=== PATIENT | female | born 2000 | race American Indian/Alaskan Native ===

== ENCOUNTER 2018-03-24 19:06 | Emergency (ER) | payer SELFPAY | END 2018-03-24 22:24 | disposition left against medical advice (07) | LOC: ED 19:06 | DX: F19.90 Other psychoactive substance use, unspecified, uncomplicated (principal); Z53.21 Procedure and treatment not carried out due to patient leaving prior to being seen by health care provider ==

== ENCOUNTER 2018-06-23 21:59 | Emergency (ER) | payer SELFPAY ==
[2018-06-24 01:06] LABS: Amorphous Crystals,Urine 1+; Bilirubin,Urine NEG (Negative); Blood,Urine NEG (Negative); Color,Urine Yellow (Yellow); Protein,Urine <15 mg/dL mg/dL (Negative)
[2018-06-24 01:14] LABS: Amphetamine Screen,Urine PRESUMPTIVE NEGATIVE; Benzodiazepines Screen,Urine PRESUMPTIVE NEGATIVE; Methadone Screen,Urine PRESUMPTIVE NEGATIVE; Opiate Screen,Urine PRESUMPTIVE NEGATIVE
[2018-06-24 01:19] LABS: Basophils # (Auto) 0.1 K/mm3 (0.0-0.1); Basophils % (Auto) 0.8 % (0.0-1.8); Eosinophils # (Auto) 0.4 K/mm3 (0.0-0.4); Eosinophils % (Auto) 4.8 % (0.0-4.3); Hematocrit 41.6 % (30.3-42.9); Hemoglobin 13.6 gm/dl (10.1-14.3); Lymphocytes # (Auto) 3.4 K/mm3 (1.2-5.4); Lymphocytes % (Auto) 44.7 % (13.4-35.0); Mean Corpuscular HGB Conc 33 % (30-34); Mean Corpuscular Hemoglobin 30 pg (28-32); Mean Corpuscular Volume 91 fl (79-97); Monocytes # (Auto) 0.3 K/mm3 (0.0-0.8); Monocytes % (Auto) 3.5 % (0.0-7.3); Platelet Count 366 K/mm3 (140-440); Red Cell Distribution Width 14.3 % (13.2-15.2)
[2018-06-24 01:35] LABS: BUN/Creatinine Ratio 6; Blood Urea Nitrogen 6 mg/dL (7-17); Hemolysis Index 11
[2018-06-24 01:56] LABS: Cannabinoid Screen,Urine PRESUMPTIVE POSITIVE; Cocaine Screen,Urine PRESUMPTIVE POSITIVE
--- NOTE | 2018-06-24 02:04 | Emergency Department Report ---
ED Psych HPI - General Chief Complaint: Psych Stated Complaint: LORENA EVAL Time Seen by Provider: 06/24/18 01:54 Source: patient, EMS Mode of arrival: Ambulatory - History of Present Illness Initial Comments: Patient is 18 years old female with history of schizophrenia. Patient brought to the ER via EMS for evaluation of bizarre behaviors. Patient stated that she is seeing goonies at her home and they're bothering her. Patient is calm and sleepy during the evaluation in no acute distress. She denied any suicidal or homicidal ideation. Patient mother who drove behind ambulances stating that she is out of her psychiatric medication and she is not following up with her psychiatric as supposed to be. MD Complaint: altered mental status - Related Data Home Medications Medication Instructions Recorded Confirmed Last Taken Fluticasone/Salmeterol [Advair 1 puff IH BID 06/24/18 06/24/18 Unknown Diskus 250-50 mcg] Quetiapine Fumarate [Seroquel] 300 mg PO QHS 06/24/18 06/24/18 Unknown acetaZOLAMIDE [Diamox TAB] 250 mg PO TID 06/24/18 06/24/18 Unknown busPIRone [Buspar] 10 mg PO TID 06/24/18 06/24/18 Unknown hydrOXYzine PAMOATE [Vistaril] 25 mg PO TID 06/24/18 06/24/18 Unknown risperiDONE [RisperDAL] 1 mg PO BID 06/24/18 06/24/18 Unknown Allergies Allergy/AdvReac Type Severity Reaction Status Date / Time raspberry Allergy Swelling Verified 06/24/18 00:42 tomato Allergy Swelling Verified 06/24/18 00:43 topiramate [From Topamax] Allergy Swelling Verified 06/24/18 00:43 ED Review of Systems ROS: Stated complaint: LORENA EVAL Other details as noted in HPI Comment: All other systems reviewed and negative Constitutional: denies: chills, fever Respiratory: denies: cough, shortness of breath, SOB with exertion Cardiovascular: denies: chest pain, palpitations, dyspnea on exertion Gastrointestinal: denies: abdominal pain, nausea, vomiting, diarrhea, constipation, hematemesis, melena, hematochezia Musculoskeletal: denies: back pain Neurological: denies: headache, weakness, numbness, paresthesias, abnormal gait ED Past Medical Hx - Past Medical History Previous Medical History?: Yes Hx Hypertension: Yes Hx Psychiatric Treatment: Yes (anxiety,schizophrenia,depression) Hx Asthma: Yes - Social History Smoking Status: Heavy Tobacco Smoker Substance Use Type: Alcohol, Cocaine, Marijuana - Medications Home Medications: Home Medications Medication Instructions Recorded Confirmed Last Taken Type Fluticasone/Salmeterol [Advair 1 puff IH BID 06/24/18 06/24/18 Unknown History Diskus 250-50 mcg] Quetiapine Fumarate [Seroquel] 300 mg PO QHS 06/24/18 06/24/18 Unknown History acetaZOLAMIDE [Diamox TAB] 250 mg PO TID 06/24/18 06/24/18 Unknown History busPIRone [Buspar] 10 mg PO TID 06/24/18 06/24/18 Unknown History hydrOXYzine PAMOATE [Vistaril] 25 mg PO TID 06/24/18 06/24/18 Unknown History risperiDONE [RisperDAL] 1 mg PO BID 06/24/18 06/24/18 Unknown History ED Physical Exam - General Limitations: No Limitations General appearance: alert, in no apparent distress - Head Head exam: Present: atraumatic, normocephalic, normal inspection - ENT ENT exam: Present: normal exam, normal orophraynx, mucous membranes moist - Neck Neck exam: Present: normal inspection, full ROM. Absent: tenderness, meningismus - Respiratory Respiratory exam: Present: normal lung sounds bilaterally. Absent: respiratory distress, wheezes, rales, rhonchi, chest wall tenderness - Cardiovascular Cardiovascular Exam: Present: regular rate, normal rhythm, normal heart sounds - GI/Abdominal GI/Abdominal exam: Present: soft, normal bowel sounds. Absent: distended, tenderness, guarding, rebound, rigid, organomegaly, mass, bruit, pulsatile mass - Extremities Exam Extremities exam: Present: normal inspection, full ROM, normal capillary refill. Absent: pedal edema, calf tenderness - Back Exam Back exam: Present: normal inspection, full ROM. Absent: tenderness, CVA tenderness (R), CVA tenderness (L), muscle spasm, paraspinal tenderness, vertebral tenderness - Neurological Exam Neurological exam: Present: alert, oriented X3, CN II-XII intact, normal gait, reflexes normal - Skin Skin exam: Present: warm, intact, normal color ED Course Vital Signs 06/24/18 06/24/18 06/24/18 00:22 10:00 13:45 Temperature 97.5 F L 97.6 F Pulse Rate 84 75 Respiratory 18 18 18 Rate Blood Pressure 134/63 Blood Pressure 134/63 125/77 [Left] O2 Sat by Pulse 100 100 Oximetry 06/24/18 19:45 Temperature 98.4 F Pulse Rate 86 Respiratory 18 Rate Blood Pressure Blood Pressure 117/72 [Left] O2 Sat by Pulse 100 Oximetry ED Medical Decision Making - Lab Data Result diagrams: 06/24/18 01:00 06/24/18 01:00 Critical care attestation.: If time is entered above; I have spent that time in minutes in the direct care of this critically ill patient, excluding procedure time. ED Disposition Clinical Impression: Acute psychosis Disposition: [id number]/TX-[facility] PSY HOSP/PSY UNIT Is pt being admited?: No Condition: Stable Referrals: PRIMARY CARE, [Primary Care Provider] - 3-5 Days
[2018-06-24] MEDS ORDERED: GEODON PO ONE (05:38)
[2018-06-24] MEDS ORDERED: GEODON ONE (05:40)
--- NOTE | 2018-06-24 12:45 | Consultation ---
History of Present Illness - Reason for Consult Consult date: 06/24/18 Reason for consult: Mental Health Evaluation Requesting physician: MARK CANTU - Chief Complaint Chief complaint: "They are after me" - History of Present Psychiatric Illness 18 years old AA female presenting to the Er for acute psychosis. Today the patient is calm, but disorganized during the assessment. She had to be redirected several times to keep her on topic. She is adamant that "goonies" are after her. No gestures of SI/Hi's. This patient is a poor historian at this time. Medications and Allergies Allergies Allergy/AdvReac Type Severity Reaction Status Date / Time raspberry Allergy Swelling Verified 06/24/18 00:42 tomato Allergy Swelling Verified 06/24/18 00:43 topiramate [From Topamax] Allergy Swelling Verified 06/24/18 00:43 Home Medications Medication Instructions Recorded Confirmed Last Taken Type Fluticasone/Salmeterol [Advair 1 puff IH BID 06/24/18 06/24/18 Unknown History Diskus 250-50 mcg] Quetiapine Fumarate [Seroquel] 300 mg PO QHS 06/24/18 06/24/18 Unknown History acetaZOLAMIDE [Diamox TAB] 250 mg PO TID 06/24/18 06/24/18 Unknown History busPIRone [Buspar] 10 mg PO TID 06/24/18 06/24/18 Unknown History hydrOXYzine PAMOATE [Vistaril] 25 mg PO TID 06/24/18 06/24/18 Unknown History risperiDONE [RisperDAL] 1 mg PO BID 06/24/18 06/24/18 Unknown History Past psychiatric history - Past Medical History Past Medical History: hypertension Past Surgical History: No surgical history - past Psychiatric treatment and history psychiatric treatment history: Unable to obtain a psy hx and a fam psy hx. - Social History Social history: other (Unable to obtain) Mental Status Exam - Vital signs Last Vital Signs Temp 97.5 F L 06/24/18 00:22 Pulse 84 06/24/18 00:22 Resp 18 06/24/18 00:22 BP 134/63 06/24/18 00:22 Pulse Ox 100 06/24/18 00:22 - Exam Narrative exam: MSE: Appearance: calm Behavior: poor eye contact Speech: regular rate and tone Mood: "okay" Affect: flat Thought Process: disorganized Thought Content: no gestures of SI/HI's, delusional Motor Activity: lying in bed Cognition: A/O x 3 Insight: poor Judgment: poor Results Result Diagrams: 06/24/18 01:00 06/24/18 01:00 Abnormal lab results 06/24/18 06/24/18 06/24/18 Range/Units 00:45 01:00 01:00 Lymph % (Auto) (13.4-35.0) % Eos % (Auto) (0.0-4.3) % Sodium (137-145) mmol/L Carbon Dioxide (22-30) mmol/L BUN (7-17) mg/dL Urine pH 8.0 H (5.0-7.0) Salicylates < 0.3 L (2.8-20.0) mg/dL Acetaminophen < 5.0 L (10.0-30.0) ug/mL 06/24/18 06/24/18 Range/Units 01:00 01:00 Lymph % (Auto) 44.7 H (13.4-35.0) % Eos % (Auto) 4.8 H (0.0-4.3) % Sodium 136 L (137-145) mmol/L Carbon Dioxide 18 L (22-30) mmol/L BUN 6 L (7-17) mg/dL Urine pH (5.0-7.0) Salicylates (2.8-20.0) mg/dL Acetaminophen (10.0-30.0) ug/mL All other labs normal. Assessment and Plan Assessment and plan: Impression: Unspecified Psychosis. Substance Use DO (cocaine). Cannabis Use DO. Today the patient is calm, but disorganized during the assessment. DDx: R/O Bipolar DO with psychosis, R/O Substance Induced Psychotic DO Recommendation/Plan: Continue 1013 with placement to inpatient psy services. Start Zyprexa 5 mg PO HS for psychosis. Attempted to discuss possible metabolic side effects of Zyprexa with patient.
[2018-06-24] MEDS ORDERED: HALDOL IM PRN (13:40)
[2018-06-24] MEDS ORDERED: ATIVAN IM PRN (13:40)
--- NOTE | 2018-06-25 13:13 | Progress Note ---
Subjective - Reason for Consult Consult date: 06/25/18 Reason for consult: Psychiatry Follow-up - Chief Complaint Chief complaint: "I'm not sure what happened" 18 years old AA female presenting to the Er for acute psychosis. Today the patient is calm during the assessment. She was asked about "goonies" follows and their attention, she hesitated answering the questions. She could not elaborate about what happened at her home. She stated that she believe that her mother called EMS to bring her to the hospital. She denies a mental health hx when asked. She denies SI/HI's and AVH's. She denies any side effects of her medications. Mental Status Exam - Vital signs Last Vital Signs Temp 97.9 F 06/25/18 10:00 Pulse 83 06/25/18 10:00 Resp 18 06/25/18 10:00 BP 114/63 06/25/18 10:00 Pulse Ox 100 06/25/18 10:00 - Exam Narrative exam: MSE: Appearance: calm Behavior: poor eye contact Speech: regular rate and tone Mood: "okay" Affect: flat Thought Process: circumstantial Thought Content: denies SI/HI's and AVH's Motor Activity: lying in bed Cognition: A/O x 3 Insight: variable Judgment: variable Assessment and Plan Impression: Unspecified Psychosis. Substance Use DO (cocaine). Cannabis Use DO. Today the patient is calm during the assessment. DDx: R/O Bipolar DO with psychosis, R/O Substance Induced Psychotic DO Recommendation/Plan: Continue 1013 with placement to [facility] pending transport time. Continue Zyprexa 5 mg PO HS for psychosis. Attempted to discuss possible metabolic side effects of Zyprexa with patient.
--- NOTE | 2018-06-26 16:47 | Progress Note ---
Subjective - Reason for Consult Consult date: 06/26/18 Reason for consult: Psychiatric Follow-up Evaluation - Chief Complaint Chief complaint: "I feel better" Patient is a 18 years old female that presents to the ER for acute psychosis. She denies a PPHx. Today the patient is calm but evasive during the assessment. She hesitates answering questions. She could not elaborate about what happened at her home prior to her admission. When she attempts to elaborate, patient thought process is disorganized/impoverished. She states, " I feel like pressure is coming down on me. I can't explain it." She denies SI/HI's and AVH's. She reports good sleep and appetite. She denies any side effects of her medications. Mental Status Exam - Vital signs Last Vital Signs Temp 98.4 F 06/26/18 10:53 Pulse 107 H 06/26/18 10:53 Resp 18 06/26/18 10:55 BP 164/94 06/26/18 10:53 Pulse Ox 100 06/26/18 10:55 - Exam Narrative exam: Mental Status Exam General Appearance: Casually Dressed-hospital gown Eye Contact: Intermittent Orientation: Alert and oriented x 4 ( person, place, time, and situation) Attitude/Behavior: Cooperative Sensorium: Distracted-less Psychomotor & Musculoskeletal Activity: Ambulatory Mood: "Better"" Affect: Constricted Speech/Language: Normal rate and tone Thought Processes: Circumstantial, disorganized at times Thought Content: Impoverished Perception: WNL-patient denies A/V/T hallucinations Concentration/Attention: Impaired Suicidal Ideations/Plan: Patient denies Homicidal Ideations/Plan: Patient denies Judgment: Variable Insight: Variable Assessment and Plan Impression: Unspecified Psychosis. Substance Use DO (cocaine). Cannabis Use DO. Today the patient is calm but evasive during the assessment. She denies SI/HI's , A/VH's, and delusions. DDx: R/O Bipolar DO with psychosis, R/O Substance Induced Psychotic DO Recommendation/Plan: 1. Continue 1013 with placement to [facility] pending transport time. 2. Continue Zyprexa 5 mg PO HS for psychosis. Attempted to discuss possible metabolic side effects of Zyprexa with patient. 3. Will continue to monitor psychosis, mood, thought process, sleep, appetite, compliance, and side effects.
[2018-06-26 20:44] VITALS: BP 106/65
== END 2018-06-26 21:33 ==
LOC: EEVIPCON 21:59 → ED 21:59
DX: F23 Brief psychotic disorder (principal); I10 Essential (primary) hypertension; F32.9 Major depressive disorder, single episode, unspecified; F41.9 Anxiety disorder, unspecified; J45.909 Unspecified asthma, uncomplicated; F17.200 Nicotine dependence, unspecified, uncomplicated; F14.10 Cocaine abuse, uncomplicated; F12.10 Cannabis abuse, uncomplicated; Z91.018 Allergy to other foods
CPT/HCPCS: 36415; 80048; 80307; 81001; 84703; 85025; 96372; 99285; G0480; J1630; J2060; 80320

== ENCOUNTER 2018-07-16 21:49 | Emergency (ER) | payer SELFPAY ==
[2018-07-16 22:37] VITALS: BP 168/87
[2018-07-16 23:39] LABS: Basophils % (Auto) 0.8 % (0.0-1.8); Eosinophils % (Auto) 0.7 % (0.0-4.3); Hematocrit 38.4 % (30.3-42.9); Hemoglobin 12.8 gm/dl (10.1-14.3); Lymphocytes # (Auto) 0.8 K/mm3 (1.2-5.4); Lymphocytes % (Auto) 14.3 % (13.4-35.0); Mean Corpuscular HGB Conc 33 % (30-34); Mean Corpuscular Hemoglobin 29 pg (28-32); Mean Corpuscular Volume 88 fl (79-97); Monocytes # (Auto) 0.3 K/mm3 (0.0-0.8); Monocytes % (Auto) 5.5 % (0.0-7.3); Platelet Count 373 K/mm3 (140-440); Red Blood Count 4.36 M/mm3 (3.65-5.03); Red Cell Distribution Width 13.7 % (13.2-15.2)
[2018-07-16 23:41] LABS: Amphetamine Screen,Urine PRESUMPTIVE NEGATIVE; Benzodiazepines Screen,Urine PRESUMPTIVE NEGATIVE; Cocaine Screen,Urine PRESUMPTIVE NEGATIVE; Methadone Screen,Urine PRESUMPTIVE NEGATIVE; Opiate Screen,Urine PRESUMPTIVE NEGATIVE
[2018-07-16 23:49] LABS: Bilirubin,Urine NEG (Negative); Blood,Urine SM (Negative); Color,Urine Yellow (Yellow); Protein,Urine <15 mg/dL mg/dL (Negative); Urobilinogen,Urine < 2.0 mg/dL (<2.0)
[2018-07-16 23:53] LABS: BUN/Creatinine Ratio 8; Blood Urea Nitrogen 7 mg/dL (7-17); Calcium 9.3 mg/dL (8.4-10.2); Hemolysis Index 0
[2018-07-16 23:53] LABS: Cannabinoid Screen,Urine PRESUMPTIVE POSITIVE
--- NOTE | 2018-07-17 00:14 | Emergency Department Report ---
ED General Adult HPI - General Chief complaint: Chest Pain Stated complaint: CHEST PAIN,SHORT OF BREATH Time Seen by Provider: 07/16/18 23:55 Source: patient, family Mode of arrival: Ambulatory Limitations: No Limitations - History of Present Illness Initial comments: 18-year-old -[place] female with a medical history of anxiety, schizophrenia, depression comes in for chest pain and chest congestion 5 days. Patient reports that she's had a fever subjective. Complains of chills body sweats body aches and nasal congestion runny nose and a productive cough. Mother reports that she seen her psychiatrist this morning got medications change; patient took 600 mg of Seroquel and went outside and do some other drug unsure of. Patient reports that she smoked weed. Patient is followed by [facility]. She has a past medical history of asthma. Patient notes that she smokes cigarettes and weed. -: days(s) (5) Location: chest Radiation: non-radiation Severity scale (0 -10): 10 Consistency: intermittent Associated Symptoms: cough - Related Data Home Medications Medication Instructions Recorded Confirmed Last Taken Fluticasone/Salmeterol [Advair 1 puff IH BID 06/24/18 06/24/18 Unknown Diskus 250-50 mcg] Quetiapine Fumarate [Seroquel] 300 mg PO QHS 06/24/18 06/24/18 Unknown acetaZOLAMIDE [Diamox TAB] 250 mg PO TID 06/24/18 06/24/18 Unknown busPIRone [Buspar] 10 mg PO TID 06/24/18 06/24/18 Unknown hydrOXYzine PAMOATE [Vistaril] 25 mg PO TID 06/24/18 06/24/18 Unknown risperiDONE [RisperDAL] 1 mg PO BID 06/24/18 06/24/18 Unknown Previous Rx's Medication Instructions Recorded Last Taken Type Benzonatate [Tessalon Perle] 100 mg PO TID #15 capsule 07/17/18 Unknown Rx Dexchlorpheniram/Phenylephrine 1 each PO Q6H #20 tab 07/17/18 Unknown Rx [Rymed Tablet] Nitrofurantoin Monohyd/M-Cryst 100 mg PO BID #14 capsule 07/17/18 Unknown Rx [Macrobid 100 mg Capsule] Allergies Allergy/AdvReac Type Severity Reaction Status Date / Time raspberry Allergy Swelling Verified 06/24/18 00:42 tomato Allergy Swelling Verified 06/24/18 00:43 topiramate [From Topamax] Allergy Swelling Verified 06/24/18 00:43 ED Review of Systems ROS: Stated complaint: CHEST PAIN,SHORT OF BREATH Other details as noted in HPI Constitutional: chills, fever ENT: throat pain, congestion, other (rhinorrhea) Respiratory: cough Gastrointestinal: nausea Genitourinary: denies: urgency, dysuria, discharge Musculoskeletal: myalgia. denies: back pain, joint swelling, arthralgia Skin: denies: rash, lesions ED Past Medical Hx - Past Medical History Hx Hypertension: Yes Hx Psychiatric Treatment: Yes (anxiety,schizophrenia,depression) Hx Asthma: Yes - Social History Smoking Status: Current Every Day Smoker Substance Use Type: None - Medications Home Medications: Home Medications Medication Instructions Recorded Confirmed Last Taken Type Fluticasone/Salmeterol [Advair 1 puff IH BID 06/24/18 06/24/18 Unknown History Diskus 250-50 mcg] Quetiapine Fumarate [Seroquel] 300 mg PO QHS 06/24/18 06/24/18 Unknown History acetaZOLAMIDE [Diamox TAB] 250 mg PO TID 06/24/18 06/24/18 Unknown History busPIRone [Buspar] 10 mg PO TID 06/24/18 06/24/18 Unknown History hydrOXYzine PAMOATE [Vistaril] 25 mg PO TID 06/24/18 06/24/18 Unknown History risperiDONE [RisperDAL] 1 mg PO BID 06/24/18 06/24/18 Unknown History Benzonatate [Tessalon Perle] 100 mg PO TID #15 capsule 07/17/18 Unknown Rx Dexchlorpheniram/Phenylephrine 1 each PO Q6H #20 tab 07/17/18 Unknown Rx [Rymed Tablet] Nitrofurantoin Monohyd/M-Cryst 100 mg PO BID #14 capsule 07/17/18 Unknown Rx [Macrobid 100 mg Capsule] ED Physical Exam - General Limitations: No Limitations ED Course Vital Signs 07/16/18 22:24 Temperature 99.2 F Pulse Rate 125 H Respiratory 20 Rate Blood Pressure 168/87 [Left] O2 Sat by Pulse 99 Oximetry ED Medical Decision Making - Lab Data Result diagrams: 07/16/18 23:05 07/16/18 23:05 - Radiology Data Radiology results: report reviewed FINAL REPORT EXAM: XR CHEST ROUTINE 2V HISTORY: cough ?5 days with chest pain COMPARISON: None available. FINDINGS:: Frontal and lateral views of the chest obtained. Cardiac silhouette is within normal limits. No focal consolidation or effusion. No pneumothorax. Visualized bony thorax is grossly intact. IMPRESSION:: No focal consolidation. Transcribed By: LMA Dictated By: DAKOTA WRIGHT MD Electronically Authenticated By: DAKOTA WRIGHT MD Signed Date/Time: 07/17/18146 DD/ 6 TD/TT: 07/17/18146 Critical care attestation.: If time is entered above; I have spent that time in minutes in the direct care of this critically ill patient, excluding procedure time. ED Disposition Clinical Impression: URI, acute UTI (urinary tract infection) Qualifiers: Urinary tract infection type: acute cystitis Hematuria presence: with hematuria Qualified Code(s): N30.01 - Acute cystitis with hematuria Disposition: TO HOME OR SELFCARE Is pt being admited?: No Does the pt Need Aspirin: No Condition: Stable Instructions: Urinary Tract Infection in Women (ED), Upper Respiratory Infection (ED) Additional Instructions: Please take medication as prescribed. If her symptoms persist or gets worse please follow up with her primary care provider. Prescriptions: Benzonatate [Tessalon Perle] 100 mg PO TID #15 capsule Dexchlorpheniram/Phenylephrine [Rymed Tablet] 1 each PO Q6H #20 tab Nitrofurantoin Monohyd/M-Cryst [Macrobid 100 mg Capsule] 100 mg PO BID #14 capsule Referrals: PRIMARY CAREMD [Primary Care Provider] - 3-5 Days [facility] [Provider Group] - 3-5 Days Forms: Work/School Release Form(ED), Accompanied Note
--- NOTE | 2018-07-17 01:49 | XRay Report ---
FINAL REPORT EXAM: XR CHEST ROUTINE 2V HISTORY: cough ?5 days with chest pain COMPARISON: None available. FINDINGS:: Frontal and lateral views of the chest obtained. Cardiac silhouette is within normal limits. No focal consolidation or effusion. No pneumothorax. Visualized bony thorax is grossly intact. IMPRESSION:: No focal consolidation.
== END 2018-07-17 02:34 | disposition home or self-care (01) ==
LOC: ED 21:49
DX: J06.9 Acute upper respiratory infection, unspecified (principal); N30.01 Acute cystitis with hematuria; I10 Essential (primary) hypertension; F41.9 Anxiety disorder, unspecified; F32.9 Major depressive disorder, single episode, unspecified; F20.9 Schizophrenia, unspecified; F17.200 Nicotine dependence, unspecified, uncomplicated; Z79.899 Other long term (current) drug therapy; Z88.8 Allergy status to other drugs, medicaments and biological substances; Z88.9 Allergy status to unspecified drugs, medicaments and biological substances
CPT/HCPCS: 36415; 71046; 80048; 80307; 81001; 84484; 84703; 85025; 87086; 93005; 93010; 99284; G0480; 80320

== ENCOUNTER 2018-07-18 10:59 | Emergency (ER) | payer SELFPAY ==
[2018-07-18 11:43] LABS: Basophils % (Auto) 0.7 % (0.0-1.8); Eosinophils # (Auto) 0.3 K/mm3 (0.0-0.4); Eosinophils % (Auto) 7.6 % (0.0-4.3); Hematocrit 40.4 % (30.3-42.9); Hemoglobin 13.4 gm/dl (10.1-14.3); Lymphocytes # (Auto) 1.4 K/mm3 (1.2-5.4); Lymphocytes % (Auto) 33.1 % (13.4-35.0); Mean Corpuscular HGB Conc 33 % (30-34); Mean Corpuscular Hemoglobin 29 pg (28-32); Mean Corpuscular Volume 88 fl (79-97); Monocytes # (Auto) 0.3 K/mm3 (0.0-0.8); Monocytes % (Auto) 8.1 % (0.0-7.3); Platelet Count 361 K/mm3 (140-440); Red Blood Count 4.59 M/mm3 (3.65-5.03); Red Cell Distribution Width 13.5 % (13.2-15.2)
[2018-07-18 12:02] LABS: BUN/Creatinine Ratio 6; Blood Urea Nitrogen 5 mg/dL (7-17); Calcium 9.1 mg/dL (8.4-10.2); Hemolysis Index 8
--- NOTE | 2018-07-18 12:28 | Emergency Department Report ---
HPI - General Chief Complaint: Medical Clearance Time Seen by Provider: 07/18/18 11:55 - HPI HPI: 18-year-old female presents to the emergency department from home with mom with a complaint of having some type of strange unresponsive episode earlier in the morning. The patient got up and walked over to her mother's room but then just stood there staring off in space. Mom says that she kept telling the patient she needed to move around, going to breakfast, start her day, but the patient just continued to stand there. Mom says that she had to actually physically move her. The patient says that she does remember this episode but just was not able to move. She did not fall down or lose consciousness. The patient also says that she woke up very anxious and concerned regarding her breathing. She was seen here yesterday for upper respiratory like symptoms, was evaluated by an emergency physician, and was discharged home with cough medication and a decongestant. The patient has a past medical history of asthma, hypertension and allegedly pseudotumor cerebri. She has a psychiatric history of anxiety and depression and questionable schizophrenia. The patient has no complaints of any auditory or visual hallucinations and she denies any suicidal or homicidal ideations. Currently the patient is awake, oriented and answering questions appropriately. She has good psychiatric follow-up through [facility] [place] but denies having a primary care physician or a neurologist secondary to a lack of insurance. ED Past Medical Hx - Past Medical History Hx Hypertension: Yes Hx Psychiatric Treatment: Yes (anxiety,schizophrenia,depression) Hx Asthma: Yes - Surgical History Past Surgical History?: No - Social History Smoking Status: Current Every Day Smoker Substance Use Type: None - Medications Home Medications: Home Medications Medication Instructions Recorded Confirmed Last Taken Type Fluticasone/Salmeterol [Advair 1 puff IH BID 06/24/18 06/24/18 Unknown History Diskus 250-50 mcg] Quetiapine Fumarate [Seroquel] 300 mg PO QHS 06/24/18 06/24/18 Unknown History acetaZOLAMIDE [Diamox TAB] 250 mg PO TID 06/24/18 06/24/18 Unknown History busPIRone [Buspar] 10 mg PO TID 06/24/18 06/24/18 Unknown History hydrOXYzine PAMOATE [Vistaril] 25 mg PO TID 06/24/18 06/24/18 Unknown History risperiDONE [RisperDAL] 1 mg PO BID 06/24/18 06/24/18 Unknown History Benzonatate [Tessalon Perle] 100 mg PO TID #15 capsule 07/17/18 Unknown Rx Dexchlorpheniram/Phenylephrine 1 each PO Q6H #20 tab 07/17/18 Unknown Rx [Rymed Tablet] Nitrofurantoin Monohyd/M-Cryst 100 mg PO BID #14 capsule 07/17/18 Unknown Rx [Macrobid 100 mg Capsule] ED Review of Systems ROS: Stated complaint: WEAKNESS Other details as noted in HPI Comment: All other systems reviewed and negative Constitutional: denies: chills, fever Eyes: denies: eye pain, eye discharge, vision change ENT: denies: ear pain, throat pain Respiratory: cough, shortness of breath Cardiovascular: denies: palpitations, edema Gastrointestinal: denies: abdominal pain, nausea, diarrhea Genitourinary: denies: urgency, dysuria, discharge Musculoskeletal: denies: back pain, joint swelling, arthralgia Skin: denies: rash, lesions Neurological: denies: numbness, paresthesias Psychiatric: anxiety, depression. denies: auditory hallucinations, visual hallucinations, homicidal thoughts, suicidal thoughts Physical Exam - Physical Exam Vital Signs: Vital Signs 07/18/18 11:04 Temperature 98.0 F Pulse Rate 93 H Respiratory 18 Rate Blood Pressure 137/77 O2 Sat by Pulse 100 Oximetry Physical Exam: GENERAL: The patient is well-developed well-nourished. HENT: Normocephalic. Atraumatic. Patient has moist mucous membranes. EYES: Extraocular motions are intact. Pupils equal reactive to light bilaterally. NECK: Supple. Trachea is midline CHEST/LUNGS: Clear to auscultation. There is no respiratory distress noted. HEART/CARDIOVASCULAR: Regular. There is no tachycardia. There is no murmur. ABDOMEN: Abdomen is soft, nontender. Patient has normal bowel sounds. Obese habitus. SKIN: Skin is warm and dry. NEURO: The patient is awake, alert, and oriented. The patient is cooperative. The patient has no focal neurologic deficits. The patient has normal speech. MUSCULOSKELETAL: There is no tenderness or deformity. There is no limitation range of motion. There is no evidence of acute injury. PSYCH: Patient is calm and appropriate. ED Course Vital Signs 07/18/18 11:04 Temperature 98.0 F Pulse Rate 93 H Respiratory 18 Rate Blood Pressure 137/77 O2 Sat by Pulse 100 Oximetry ED Medical Decision Making - Lab Data Result diagrams: 07/18/18 11:24 07/18/18 11:24 - Medical Decision Making Patient presents with what appears to be a combination of a follow-up regarding some upper respiratory type symptoms, as well as a questionable psychiatric event earlier in the day. Apparently the patient was staring and not moving but was awake and aware of this happening. Patient has a history of depression , anxiety and questionable history of schizophrenia. However since the patient has been in the emergency department she has been awake, alert, oriented, calm and appropriate. She denies any suicidal or homicidal ideations and denies any hallucinations. The patient was seen by the psych assessment team and does not appear to be a candidate to be made a 1013 or require inpatient psychiatric treatment. Patient's labs have been unremarkable. Chest x-ray was not repeated at the patient's request. She has a decongestant and cough medication from her previous visit. The patient also has Macrobid for a urinary tract infection that was done yesterday and that she still has today. The patient has good follow-up at [facility]. The patient tells me that she has a history of pseudotumor cerebri and she has a mild headache. She is talking about getting a lumbar puncture done just to make sure that "everything is fine." However the patient does not have any focal, motor or sensory deficits in her cranial nerves are intact. She does not have any symptoms or signs of hydrocephalus. I do not feel that doing a lumbar puncture is necessary at this time. Patient and her mother refused a CT scan of the head. However I have given the patient a referral for a local neurologist. The patient also made the random statement that sometimes she feels like her heart slows down and/or skips a beat. She is not talking about her current symptoms but things that happened in the past. For this reason the patient was given a referral for cardiology if she would like to follow up regarding this. They have been instructed to return to the emergency department if there is any worsening of her current symptoms or any acute distress. - Differential Diagnosis psychosis, dysrhythmia, electrolyte abnormalities, depression Critical Care Time: No Critical care attestation.: If time is entered above; I have spent that time in minutes in the direct care of this critically ill patient, excluding procedure time. ED Disposition Clinical Impression: History of depression, Anxiety, URI, acute UTI (urinary tract infection) Qualifiers: Urinary tract infection type: acute cystitis Hematuria presence: with hematuria Qualified Code(s): N30.01 - Acute cystitis with hematuria Headache Qualifiers: Headache type: unspecified Headache chronicity pattern: episodic headache Intractability: not intractable Qualified Code(s): R51 - Headache Disposition: DC- TO HOME OR SELFCARE Is pt being admited?: No Condition: Stable Instructions: Urinary Tract Infection in Women (ED), Depression (ED), Anxiety ( ED) Additional Instructions: Please follow up with your psychiatric team at the [facility] [place]. I'm giving you a referral for a local primary care clinic, [facility], to follow-up for a regular physical and for any medical concerns. As per our conversation, I'm giving him a referral for a local director of federal sales, Dr. Chaudhari, whom you can follow-up with for an evaluation of her heart if you have any further palpitations or concerns. I will also give you a referral for a local neurologist, Dr. Castellano, to follow-up regarding your history of pseudotumor cerebri. Return to the emergency Department with any worsening of your symptoms or any acute distress. Referrals: [facility] [Outside] - 3-5 Days BRIDGETTE CHAUDHARI MD [Staff Physician] - 3-5 Days PATY CASTELLANO MD [Staff Physician] - 3-5 Days [facility] [Outside] - 3-5 Days Time of Disposition: 14:52
[2018-07-18 13:07] LABS: Bacteria,Urine 1+ /HPF (Negative); Bilirubin,Urine NEG (Negative); Blood,Urine NEG (Negative); Color,Urine Amber (Yellow); Mucus,Urine 3+ /HPF
[2018-07-18 13:15] LABS: Amphetamine Screen,Urine PRESUMPTIVE NEGATIVE; Benzodiazepines Screen,Urine PRESUMPTIVE NEGATIVE; Cocaine Screen,Urine PRESUMPTIVE NEGATIVE; Opiate Screen,Urine PRESUMPTIVE NEGATIVE
[2018-07-18 13:38] LABS: Cannabinoid Screen,Urine PRESUMPTIVE POSITIVE; Methadone Screen,Urine PRESUMPTIVE POSITIVE
[2018-07-18 15:11] VITALS: BP 130/76
== END 2018-07-18 15:03 | disposition home or self-care (01) ==
LOC: ED 10:59
DX: R51 Headache (principal); F32.9 Major depressive disorder, single episode, unspecified; N30.01 Acute cystitis with hematuria; F41.9 Anxiety disorder, unspecified; Z79.899 Other long term (current) drug therapy; F20.9 Schizophrenia, unspecified; J45.909 Unspecified asthma, uncomplicated; F17.200 Nicotine dependence, unspecified, uncomplicated; Z91.013 Allergy to seafood; Z91.018 Allergy to other foods; Z88.8 Allergy status to other drugs, medicaments and biological substances
CPT/HCPCS: 36415; 80048; 80307; 81001; 85025; 99284; G0480; 80320

== ENCOUNTER 2020-03-20 08:27 | Emergency (ER) | payer MEDICAID ==
[2020-03-20 09:14] LABS: Bilirubin,Urine NEG (Negative); Blood,Urine LG (Negative); Color,Urine Yellow (Yellow); Protein,Urine <15 mg/dL mg/dL (Negative); Urobilinogen,Urine < 2.0 mg/dL (<2.0)
[2020-03-20 09:19] LABS: Amphetamine Screen,Urine PRESUMPTIVE NEGATIVE; Benzodiazepines Screen,Urine PRESUMPTIVE NEGATIVE; Methadone Screen,Urine PRESUMPTIVE NEGATIVE; Opiate Screen,Urine PRESUMPTIVE NEGATIVE
[2020-03-20 09:49] LABS: Cannabinoid Screen,Urine PRESUMPTIVE POSITIVE; Cocaine Screen,Urine PRESUMPTIVE POSITIVE
[2020-03-20 10:25] LABS: BUN/Creatinine Ratio 8; Blood Urea Nitrogen 6 mg/dL (7-17); Calcium 10.2 mg/dL (8.4-10.2); Hemolysis Index 6
[2020-03-20 11:29] LABS: Basophils % (Auto) 0.6 % (0.0-1.8); Eosinophils % (Auto) 0.1 % (0.0-4.3); Hematocrit 39.4 % (30.3-42.9); Hemoglobin 13.1 gm/dl (10.1-14.3); Lymphocytes # (Auto) 1.7 K/mm3 (1.2-5.4); Lymphocytes % (Auto) 22.4 % (13.4-35.0); Mean Corpuscular HGB Conc 33 % (30-34); Mean Corpuscular Volume 87 fl (79-97); Monocytes # (Auto) 0.2 K/mm3 (0.0-0.8); Monocytes % (Auto) 3.2 % (0.0-7.3); Platelet Count 397 K/mm3 (140-440); Red Blood Count 4.52 M/mm3 (3.65-5.03); Red Cell Distribution Width 15.3 % (13.2-15.2)
== END 2020-03-20 09:00 | disposition left against medical advice (07) ==
LOC: ED 08:27
DX: R21 Rash and other nonspecific skin eruption (principal); Z53.21 Procedure and treatment not carried out due to patient leaving prior to being seen by health care provider
CPT/HCPCS: 36415; 80048; 80307; 80320; 81001; 85025; G0480

== ENCOUNTER 2020-06-15 12:47 | Emergency (ER) | payer SELFPAY ==
[2020-06-15 13:06] VITALS: BP 114/63
[2020-06-15] MEDS ORDERED: ALBUTEROL 2.5 MG/3 ML NEBU IH ONE (13:32)
[2020-06-15] MEDS ORDERED: predniSONE 20 MG TAB PO ONE (13:32)
--- NOTE | 2020-06-15 13:33 | Emergency Department Report ---
Minor Respiratory - HPI Chief Complaint: Upper Respiratory Infection Stated Complaint: CHEST PAINS DIFF BREATHING Time Seen by Provider: 06/15/20 13:30 Duration: 2 Days Severity: moderate Minor Respiratory: Yes Cough, Yes Shortness of Breath, No Rhinorrhea, No Sore Throat, No Able to Tolerate Fluids, No Ear Pain, No Sick Contacts, No Hemoptysis, No Chest Pain, No Fever Other History: 20-year-old obese -Citizen Of [place] female presents to the emergency room complaining of a 2-day history of cough shortness of breath and reports her ability to taste is different. Patient denies any fever chills no nausea no vomiting no diarrhea. Patient reports a past medical history of asthma but has not needed to use her inhaler. She also reports a past medical history of hypertension anxiety, schizophrenia depression and pseudotumors of the cerebral. ED Review of Systems ROS: Stated complaint: CHEST PAINS DIFF BREATHING Other details as noted in HPI Comment: All other systems reviewed and negative ED Past Medical Hx - Past Medical History Previous Medical History?: Yes Hx Hypertension: Yes Hx Psychiatric Treatment: Yes (anxiety,schizophrenia,depression) Hx Asthma: Yes Additional medical history: Pseudotumor cerebri - Surgical History Past Surgical History?: Yes Additional Surgical History: CYST REMOVAL TONSILECTOMY - Social History Smoking Status: Current Every Day Smoker Substance Use Type: Marijuana - Medications Home Medications: Home Medications Medication Instructions Recorded Confirmed Last Taken Type Benzonatate [Tessalon Perle] 100 mg PO TID PRN 08/13/18 08/13/18 Unknown History QUEtiapine [SEROquel] 200 mg PO QAM 08/13/18 08/13/18 Unknown History Quetiapine Fumarate [Seroquel] 300 mg PO HS 08/13/18 08/13/18 Unknown History traZODone [Desyrel] 100 mg PO QHS 08/13/18 08/13/18 Unknown History Albuterol Sulfate [Proventil Hfa] 6.7 gm IH QID #1 hfa.aer.ad 06/15/20 Unknown Rx predniSONE [Deltasone] 20 mg PO QDAY #5 tab 06/15/20 Unknown Rx Minor Respiratory Exam - Exam General: Vital signs noted. No distress. Alert and acting appropriately. HEENT: Yes Moist Mucous Membranes, No Pharyngeal Erythema, No Pharyngeal Exudates, No Rhinorrhea, No Conjuctival Injection, No Frontal Tenderness, No Maxillary Tenderness Neck: Yes Supple, No Adenopathy Lungs: Yes Cough Heart: Yes Regular, No Murmur Abdomen: Yes Normal Bowel Sounds, No Tenderness, No Peritoneal Signs Skin: No Rash, No Edema Neurologic: Alert and oriented, no deficits. Musculoskeletal: Unremarkable. ED Course Vital Signs 06/15/20 12:55 Temperature 98.3 F Pulse Rate 84 Respiratory 20 Rate Blood Pressure 114/63 O2 Sat by Pulse 95 Oximetry - Reevaluation(s) Reevaluation #1: 06/15/20 15:13 Patient reports she feels much better now. ED Medical Decision Making - Radiology Data Radiology results: report reviewed Ordering Physician: Huma Gauthier MD Date of Service: 06/15/20 Procedure(s): XR chest routine 2V Accession Number(s): [id number] cc: Huma Gauhtier MD Fluoro Time In Minutes: CHEST 2 VIEWS INDICATION / CLINICAL INFORMATION: SOB, cough. COMPARISON: 07/17/18 FINDINGS: SUPPORT DEVICES: None. HEART / MEDIASTINUM: No significant abnormality. LUNGS / PLEURA: No significant pulmonary or pleural abnormality. No pneumothorax. ADDITIONAL FINDINGS: No significant additional findings. IMPRESSION: 1. No acute findings. No significant change. Signer Name: Richard Felipe MD Signed: 06/15/2020 2:47 PM Workstation Name: [id number] Transcribed By: DT Dictated By: Nicolas Felipe MD Electronically Authenticated By: Nicolas Felipe MD Signed Date/Time: 06/15/20 1447 DD/ 1446 TD/TT: - Medical Decision Making 20-year-old obese -Citizen Of [place] female presents to the emergency room complaining of a 2-day history of cough shortness of breath and reports her ability to taste is different. Patient denies any fever chills no nausea no vomiting no diarrhea. Patient reports a past medical history of asthma but has not needed to use her inhaler. She also reports a past medical history of hypertension anxiety, schizophrenia depression and pseudotumors of the cerebral. Chest x-ray has been ordered. Prednisone 60 mg p.o. albuterol 5 mg p.o. Critical care attestation.: If time is entered above; I have spent that time in minutes in the direct care of this critically ill patient, excluding procedure time. ED Disposition Clinical Impression: Asthma Qualifiers: Asthma severity: mild Asthma persistence: intermittent Asthma complication type: unspecified Qualified Code(s): J45.20 - Mild intermittent asthma, uncomplicated Disposition: TO HOME OR SELFCARE Is pt being admited?: No Does the pt Need Aspirin: No Condition: Stable Instructions: Asthma (ED) Additional Instructions: This x-ray was negative for any acute findings. Use your inhaler as needed complete her prednisone. Prescriptions: predniSONE [Deltasone] 20 mg PO QDAY #5 tab Albuterol Sulfate [Proventil Hfa] 6.7 gm IH QID #1 hfa.aer.ad Referrals: [facility] [Primary Care Provider] - 3-5 Days [facility] [Provider Group] - 3-5 Days
--- NOTE | 2020-06-15 14:51 | XRay Report ---
CHEST 2 VIEWS INDICATION / CLINICAL INFORMATION: SOB, cough. COMPARISON: 07/17/18 FINDINGS: SUPPORT DEVICES: None. HEART / MEDIASTINUM: No significant abnormality. LUNGS / PLEURA: No significant pulmonary or pleural abnormality. No pneumothorax. ADDITIONAL FINDINGS: No significant additional findings. IMPRESSION: 1. No acute findings. No significant change. Signer Name: Richard Felipe MD Signed: 06/15/2020 2:47 PM Workstation Name: [id number]
== END 2020-06-15 15:18 | disposition home or self-care (01) ==
LOC: ED 12:47
DX: J45.909 Unspecified asthma, uncomplicated (principal); I10 Essential (primary) hypertension; F25.1 Schizoaffective disorder, depressive type; F41.9 Anxiety disorder, unspecified; F17.200 Nicotine dependence, unspecified, uncomplicated; F12.90 Cannabis use, unspecified, uncomplicated; Z91.018 Allergy to other foods; Z88.8 Allergy status to other drugs, medicaments and biological substances; Z79.899 Other long term (current) drug therapy; Z98.890 Other specified postprocedural states
CPT/HCPCS: 71046; 94640; 99283; J7512

== ENCOUNTER 2021-05-01 13:40 | Emergency (ER) | payer MEDICAID ==
[2021-05-01 14:18] VITALS: BP 135/48
--- NOTE | 2021-05-01 14:20 | Emergency Department Report ---
Blank Doc - Documentation Documentation: This is a 20-year-old female that was brought by mother for chest tightness, s hortness of breath and chest pains. Exam: There is bilateral expiratory wheezing. Patient is 17 weeks . Denies any related symptoms. Tachycardia in triage. 1- This is a initial triage assessment/medical screening only. Full assessment and work-up will be completed once the patient is in proper hospital gown, ED bed and in a private room setting. This initial assessment/diagnostic orders/clinical plan/ treatment(s) is/are subject to change based on pt's health status, clinical progression and re-assessment by fellow clinical providers in the ED. Further treatment and workup at subsequent clinical providers discretion. Patient/guardians urged not to elope from ED as their condition may be serious if not clinically assessed and managed. 2-cardiac work-up r/o possible PE vs. asthma exacerbation
[2021-05-01 16:00] LABS: Basophils % (Auto) 0.4 % (0.0-1.8); Eosinophils # (Auto) 0.4 K/mm3 (0.0-0.4); Eosinophils % (Auto) 4.7 % (0.0-4.3); Hematocrit 35.6 % (30.3-42.9); Hemoglobin 12.2 gm/dl (10.1-14.3); Lymphocytes # (Auto) 1.6 K/mm3 (1.2-5.4); Lymphocytes % (Auto) 19.1 % (13.4-35.0); Mean Corpuscular HGB Conc 34 % (30-34); Mean Corpuscular Volume 89 fl (79-97); Monocytes # (Auto) 0.3 K/mm3 (0.0-0.8); Monocytes % (Auto) 3.6 % (0.0-7.3); Platelet Count 318 K/mm3 (140-440); Red Blood Count 4.01 M/mm3 (3.65-5.03); Red Cell Distribution Width 14.2 % (13.2-15.2)
[2021-05-01 16:07] LABS: INR 0.9 (0.87-1.13)
[2021-05-01 16:08] LABS: Partial Thromboplastin Time 29.5 Sec. (24.2-36.6)
[2021-05-01 16:14] LABS: Alanine Aminotransferase 29 units/L (7-56); Albumin 3.8 g/dL (3.9-5); BUN/Creatinine Ratio 19; Blood Urea Nitrogen 27 mg/dL (7-17); Hemolysis Index 6
[2021-05-01 18:33] LABS: Hemoglobin 12.6 gm/dl (10.1-14.3); Mean Corpuscular HGB Conc 34 % (30-34); Mean Corpuscular Volume 89 fl (79-97); Platelet Count 338 K/mm3 (140-440); Red Blood Count 4.13 M/mm3 (3.65-5.03); Red Cell Distribution Width 14.5 % (13.2-15.2)
[2021-05-01] MEDS ORDERED: MAGNESIUM SULFATE 2 GM/50 ML BAG IV ONE (18:41)
[2021-05-01] MEDS ORDERED: methylPREDNISolone Sod Succinate 125 MG/2 ML INJ IV ONE (18:41)
[2021-05-01] MEDS ORDERED: ALBUTEROL 2.5 MG/3 ML NEBU IH ONE (18:41)
[2021-05-01] MEDS ORDERED: IPRATROPIUM 0.02% NEBU 2.5 ML IH ONE (18:41)
--- NOTE | 2021-05-01 19:23 | XRay Report ---
CHEST 1 VIEW 05/01/2021 6:17 PM INDICATION / CLINICAL INFORMATION: Shortness of breath. COMPARISON: 06/15/2020 FINDINGS: SUPPORT DEVICES: None. HEART / MEDIASTINUM: No significant abnormality. LUNGS / PLEURA: No significant pulmonary or pleural abnormality. No pneumothorax. ADDITIONAL FINDINGS: No significant additional findings. IMPRESSION: 1. No acute findings. Signer Name: Mikel Medrano MD Signed: 05/01/2021 7:18 PM Workstation Name: [id number]
--- NOTE | 2021-05-01 19:33 | Emergency Department Report ---
ED Shortness of Breath HPI - General Chief Complaint: Dyspnea/Respdistress Stated Complaint: ASTHMA/VOMITING/HIGH RISK PREG Time Seen by Provider: 05/01/21 14:17 Source: patient Mode of arrival: Ambulatory Limitations: No Limitations - History of Present Illness Initial Comments: 20-year-old female, 17 weeks , history of asthma, presents to ED with wheezing and shortness of breath. She states she was cleaning out her closet and believes that the dust triggered her asthma. Patient states she does not have an inhaler at home. Patient is reporting chest tightness that she states is related to her asthma. She denies any cough or fever. Patient states she has not yet received her COVID-19 vaccine. Patient denies any abdominal pain. She states she is with Marcio SINGH MD Complaint: shortness of breath, "asthma attack" -: This afternoon Severity: moderate Consistency: constant Improves With: nothing Worsens With: exertion Known History Of: asthma Context: allergen exposure Treatments Prior to Arrival: none - Related Data Home Oxygen Therapy: No Home Medications Medication Instructions Recorded Confirmed Last Taken Benzonatate [Tessalon Perle] 100 mg PO TID PRN 08/13/18 08/13/18 Unknown QUEtiapine [SEROquel] 200 mg PO QAM 08/13/18 08/13/18 Unknown Quetiapine Fumarate [Seroquel] 300 mg PO HS 08/13/18 08/13/18 Unknown traZODone [Desyrel] 100 mg PO QHS 08/13/18 08/13/18 Unknown Previous Rx's Medication Instructions Recorded Last Taken Type Albuterol Sulfate [Proventil Hfa] 6.7 gm IH QID #1 hfa.aer.ad 06/15/20 Unknown Rx predniSONE [Deltasone] 20 mg PO QDAY #5 tab 06/15/20 Unknown Rx Albuterol Sulfate [Proventil Hfa] 2 puff IH Q4HR PRN #1 hfa.aer.ad 05/01/21 Unknown Rx Promethazine [Phenergan TAB] 25 mg PO Q6HR PRN #20 tab 05/01/21 Unknown Rx predniSONE [Deltasone] 50 mg PO QDAY #5 tab 05/01/21 Unknown Rx Allergies Allergy/AdvReac Type Severity Reaction Status Date / Time raspberry Allergy Swelling Verified 08/12/18 21:53 tomato Allergy Swelling Verified 08/12/18 21:53 topiramate [From Topamax] Allergy Swelling Verified 08/12/18 21:53 ED Review of Systems ROS: Stated complaint: ASTHMA/VOMITING/HIGH RISK PREG Other details as noted in HPI Comment: All other systems reviewed and negative Constitutional: denies: fever Respiratory: shortness of breath, wheezing. denies: cough ED Past Medical Hx - Past Medical History Previous Medical History?: Yes Hx Hypertension: Yes Hx Psychiatric Treatment: Yes (anxiety,schizophrenia,depression) Hx Asthma: Yes Additional medical history: Pseudotumor cerebri - Surgical History Past Surgical History?: Yes Additional Surgical History: CYST REMOVAL TONSILECTOMY - Social History Smoking Status: Current Some Day Smoker Substance Use Type: None - Medications Home Medications: Home Medications Medication Instructions Recorded Confirmed Last Taken Type Benzonatate [Tessalon Perle] 100 mg PO TID PRN 08/13/18 08/13/18 Unknown History QUEtiapine [SEROquel] 200 mg PO QAM 08/13/18 08/13/18 Unknown History Quetiapine Fumarate [Seroquel] 300 mg PO HS 08/13/18 08/13/18 Unknown History traZODone [Desyrel] 100 mg PO QHS 08/13/18 08/13/18 Unknown History Albuterol Sulfate [Proventil Hfa] 6.7 gm IH QID #1 hfa.aer.ad 06/15/20 Unknown Rx predniSONE [Deltasone] 20 mg PO QDAY #5 tab 06/15/20 Unknown Rx Albuterol Sulfate [Proventil Hfa] 2 puff IH Q4HR PRN #1 hfa.aer.ad 05/01/21 Unknown Rx Promethazine [Phenergan TAB] 25 mg PO Q6HR PRN #20 tab 05/01/21 Unknown Rx predniSONE [Deltasone] 50 mg PO QDAY #5 tab 05/01/21 Unknown Rx ED Physical Exam - General Limitations: No Limitations General appearance: alert, obese - Head Head exam: Present: atraumatic, normocephalic - Eye Eye exam: Present: normal appearance, EOMI - ENT ENT exam: Present: normal exam - Neck Neck exam: Present: normal inspection - Respiratory Respiratory exam: Present: respiratory distress (Mild), wheezes, other (Tachypneic) - Cardiovascular Cardiovascular Exam: Present: regular rate, normal rhythm - GI/Abdominal GI/Abdominal exam: Present: soft. Absent: distended, tenderness - Extremities Exam Extremities exam: Present: normal inspection - Neurological Exam Neurological exam: Present: alert, oriented X3 - Psychiatric Psychiatric exam: Present: normal affect, normal mood - Skin Skin exam: Present: warm, dry, intact, normal color ED Course Vital Signs 05/01/21 14:10 Temperature 99.0 F Pulse Rate 93 H Respiratory 20 Rate Blood Pressure 135/48 O2 Sat by Pulse 100 Oximetry ED Medical Decision Making - Lab Data Result diagrams: 05/01/21 18:10 05/01/21 18:50 - Radiology Data Radiology results: report reviewed, image reviewed - Medical Decision Making 20-year-old female, history of asthma,, 17 weeks , presents to ED with a cute asthma exacerbation. Patient with audible wheezing initially. She was given Solu-Medrol, magnesium sulfate, and 1 hour albuterol/Atrovent nebulizer treatment. Patient reevaluated multiple times. Following treatment, wheezes have resolved. Patient is feeling much better at this time. Chest x-ray is negative for any acute findings. O2 sats are normal. Patient will be discharged at this time with prescriptions. Outpatient follow-up advised, return precautions given. - Differential Diagnosis Asthma, pneumonia, pulmonary edema Critical care attestation.: If time is entered above; I have spent that time in minutes in the direct care of this critically ill patient, excluding procedure time. ED Disposition Clinical Impression: Acute asthma exacerbation Disposition: - TO HOME OR SELFCARE Is pt being admited?: No Condition: Stable Instructions: Asthma, Adult, [id number] Prescriptions: predniSONE [Deltasone] 50 mg PO QDAY #5 tab Promethazine [Phenergan TAB] 25 mg PO Q6HR PRN #20 tab PRN Reason: Nausea Albuterol Sulfate [Proventil Hfa] 2 puff IH Q4HR PRN #1 hfa.aer.ad PRN Reason: Wheezing Referrals: MARCIO JANG [Other] - 3-5 Days
[2021-05-01 19:45] LABS: Blood Urea Nitrogen 5 mg/dL (7-17); Calcium 9.4 mg/dL (8.4-10.2); Hemolysis Index 33
[2021-05-01] MEDS ORDERED: ACETAMINOPHEN 325 MG TAB PO ONE (19:50)
[2021-05-01 19:52] LABS: BUN/Creatinine Ratio 10
--- NOTE | 2021-05-03 09:15 | Electrocardiograph Report ---
[facility] Test Date: 2021-05-01 Test Time: 14:24:42 Pat Name: RANDOLPH RILEY Department: Room: Gender: F [employer] Cutter: KATHRYN : 2000 Requested By: JEANIE BLANK Order Number: [id number] Reading MD: Clayton Blood Measurements Intervals [place] Rate: 93 P: 57 [place]: 136 QRS: 94 QRSD: 81 T: 41 QT: 337 QTc: 421 Interpretive Statements Sinus rhythm No previous ECG available for comparison Electronically Signed On 05-03-2021 9:14:32 EDT by Clayton Blood
== END 2021-05-01 20:48 | disposition home or self-care (01) ==
LOC: ED 13:40
DX: O99.512 Diseases of the respiratory system complicating pregnancy, second trimester (principal); O99.332 Smoking (tobacco) complicating pregnancy, second trimester; O16.2 Unspecified maternal hypertension, second trimester; O99.342 Other mental disorders complicating pregnancy, second trimester; J45.901 Unspecified asthma with (acute) exacerbation; F25.1 Schizoaffective disorder, depressive type; F41.9 Anxiety disorder, unspecified; Z3A.17 17 weeks gestation of pregnancy; Z79.899 Other long term (current) drug therapy; Z98.890 Other specified postprocedural states; Z88.8 Allergy status to other drugs, medicaments and biological substances; Z91.018 Allergy to other foods
CPT/HCPCS: 36415; 71045; 80048; 80053; 84484; 84702; 85025; 85027; 85610; 85730; 93005; 94640; 96365; 96375; 99284; J2930; J3475